=== PATIENT | male | born 1970 | race Caucasian/White ===

== ENCOUNTER 2017-08-13 11:34 | Inpatient (IN) | payer BC ==
[~2017-08-13] VITALS: Ht 170.2 cm; Wt 87.0 kg
[2017-08-13] VITALS (22 sets, daily range): BP systolic 106–1112; BP diastolic 69–109
--- NOTE | ~2017-08-13 | EKG ---
[address] [address] ELECTROCARDIOGRAM REPORT Name: GHULAM HERNANDES Room #: 205- ADM IN M.R.#: [id number] Admission: 08/13/17 Attend Phys: Alcides Cabello MD, Discharge: Date of : 66 Report #: [id number] THIS REPORT FOR: //name// 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
--- NOTE | ~2017-08-13 | EKG ---
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
--- NOTE | ~2017-08-13 | H ---
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 Sudden onset of severe unremitting chest pain. Laid down on the road and brought in to the emergency room from a good [facility]. He was awake, but in 10+/10 chest pain. Initial EKG, an acute ST segment elevated inferior wall myocardial infarction. The patient was given fentanyl, morphine, Lipitor and aspirin in the Emergency Room. Still with unremitting discomfort. He has hemodynamically remained stable. He has not had a syncopal event. There was one episode a couple of weeks ago where he only ran half his way he normally runs, but otherwise has not had symptoms previously. He has had no history of coronary artery disease. There is no family history of coronary artery disease. He was a heavy smoker, 2 packs a day for 20 years up until 10 years ago and now cigars only. He also has lost 40 pounds over the last few years by my understanding, and is an avid runner. His initial lab, potassium is 3.9, creatinine 1.1, troponin was pending. MEDICATIONS: None. He previously took a statin and weight loss and numbers improved, and takes Aleve before he runs. ALLERGIES: He has no known drug allergies. SOCIAL HISTORY: He is , 3 children. Minimal alcohol. No current tobacco. Occasional cigar on the weekend. 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 FAMILY HISTORY: Negative for premature coronary artery disease. REVIEW OF SYSTEMS: Essentially negative except for perhaps some slight increased fatigue and as stated above. PHYSICAL EXAMINATION: GENERAL: He is alert, but in significant pain. VITAL SIGNS: Pulse was 70s, blood pressure was 126/86. HEENT: Eyes reveal xanthelasmas. Pharynx is clear. NECK: Shows preserved upstrokes without jugular venous distention or bruits. LUNGS: Clear. CARDIOVASCULAR: Regular rate and rhythm, S1, S2. ABDOMEN: Soft. No HSM or abdominal bruit. [facility] [address] [place] [address] HISTORY AND PHYSICAL Name: GHULAM HERNANDES Room #: 205-P [facility] IN [facility]#: [id number] Admission: 08/13/17 Attend Phys: Alcides Cabello MD, Discharge: 08/15/17 Date of : 66 Report #: [id number] EXTREMITIES: Reveal no edema. His pulses were intact. NEUROLOGIC: Nonfocal. SKIN: Warm and dry without xanthoma or ulcer. MUSCULOSKELETAL: No gross joint deformity. ASSESSMENT: 1. Acute inferior wall myocardial infarction. 2. Remote history of tobacco. 3. Suspected hypercholesterolemia with history of ____. RECOMMENDATIONS AND PLAN: As stated above, have given Lipitor, aspirin, heparin bolus, and fentanyl, still significant discomfort with ST elevation. We will proceed emergently to the catheterization lab to delineate the anatomy. I have discussed this with the patient and his is present. <ELECTRONICALLY SIGNED> By: Alcides Cabello MD, FACC 08/15/17 1646 1250 1318 Alcides Cabello MD, FACC /nt
--- NOTE | ~2017-08-13 | EKG ---
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 : 1970 Requested By: Eladia Stapleton Order Number: [id number] MD: Tom Stack Measurements Intervals [place] Rate: 67 P: 45 [place]: 159 QRS: 12 QRSD: 95 T: -29 QT: 406 QTc: 429 Interpretive Statements Sinus rhythm RSR' in V1 or V2, probably normal variant T wave abnormality, consider inferior ischemia No previous ECG available for comparison Electronically Signed On 08-15-2017 8:34:45 CDT by Tom Stack [email or web address] <ELECTRONICALLY SIGNED> By: Tom Stack MD, [facility] [id number] 2 2 Tom Stack MD, [facility] /EPI
--- NOTE | ~2017-08-13 | CATHLAB ---
[facility] [address] [place] [address] INVASIVE PROCEDURE REPORT Name: GHULAM HERNANDES Room #: 205-P ADM IN M.R.#: [id number] Admission: 08/13/17 Attend Phys: Alcides Cabello, Discharge: Date of : 66 Date of Service: 08/14/17 1144 Report #: [id number] THIS REPORT FOR: //name// APPROVED REPORT Patient Details Patient Status: In-Patient Room #: The patient is a 47 year-old male Event Personnel Alcides Cabello Field Court Researcher, Gertrude Conley, Jean Carlos Perry RN RN, Alfredo Barnes RN RN, Jaqueline Dewey Scrub Procedures Performed Art Access - R femoral artery* 31606 Initial Mod Sed Same Phys/QHP Gr5y 625609 Left Heart Cath w/or w/o Coronaries [id number] [facility] CONNIE Revasc AMI Total/Sub Single RCA C9606 AMIREVSING Hemostasis with Manual pressure Procedure Narrative The patient was brought emergently to the Cardiac Catheterization Laboratory and was prepped and draped in a sterile manner. The Right Groin^ was infiltrated with 1% Lidocaine subcutaneous anesthesia. A PINNACLE 6FR Sheath #[id number] sheath was inserted into the RFA^. Coronary angiography was performed using coronary diagnostic catheters. The right coronary system was accessed and visualized with a LAUNCHER 6FR JR 4 #[id number] catheter. The left coronary system was accessed and visualized with a 6FR JL4 #[id number] catheter. The left ventricle was accessed and visualized with a 6FR PIGTAIL STRAIGHT #[id number] catheter. Left ventricular/Aortic Valve gradient assessed via catheter pullback. Left ventriculogram was performed in 30 degree projection. An aortogram of the abdominal aorta was performed. The patient tolerated the procedure well and there were no complications associated with the procedure. There was no hematoma. Intraoperative Conscious Sedation Sedation start time: 12:18 Case end Time: 12:41 Fentanyl 50.0 mcg Versed 1.0 mg Fluoro Time: 4.02 minutes Dose: DAP 6182.90 cGycm2 730 mGy Contrast Type and Amount: Visipaque 150 ml [place] [address] [place] [address] INVASIVE PROCEDURE REPORT Name: CECILIO,GHULAM BOLAÑOS Room #: 205-P [facility] IN ..#: [id number] Admission: 08/13/17 Attend Phys: Alcides Cabello, Discharge: Date of : 66 Date of Service: 08/14/17 1144 Report #: [id number] Hemodynamics The aortic pressure is 177/122 mmHg with a mean of 140 mmHg. The left ventricular pressure is 194/54 mmHg with a mean of mmHg. The left ventricular end diastolic pressure is 92 mmHg. PCI Technique Lesion Anticoagulation was achieved with Heparin. Percutaneous coronary intervention was performed on the proximal right coronary artery. The lesion stenosis prior to intervention was 100% with DRE 0 flow. A LAUNCHER 6FR JR 4 #[id number] Guide Catheter was used to engage the ostium. A Luge Wire .014 x 182CM #[id number] Interventional Guidewire was used to cross the lesion. BALLOON DILATION A Balloon catheter Sprinter OTW 3.0 x 15 #[id number] was inserted and inflated up to 12.00atm for 22seconds. STENT DEPLOYMENT A drug-eluting stent RESOLUTE OTW 4.0 X 12 #[id number] was inserted and inflated up to 14.00atm for 24seconds. Final angiography reveals % stenosis with DRE 3 flow. Conclusion #1 successful emergent PTCA stent of the large dominant right coronary artery proximal total occlusion to 0% with DRE-3 grade flow a 40 by 12 resolute drug-eluting stent postdilated 4.2 mm in size. #2 left main mild irregularity giving rise to LAD and circumflex #3 LAD extends around the apex years mild irregularity at relatively small calibered stops just short of the apex. Moderate size diagonal branch widely patent #4 circumflex OM is nondominant eccentric 3040% proximal lesion relatively large distal OM branch patent #5 normal left ventricular size with inferior wall hypokinesis EF 45% range (stunning) #6 abdominal aortic exam intact with mild irregularity no aneurysm single renal arteries widely patent Recommendations and plan patient markedly improved hemodynamically stable currently post emergent stent placement. Resolution of EKG changes. There is a stepup and stepdown on this stent proximal and distal to the stent in an area of mildly diseased vessel this is a large dominant right coronary artery. The distal PDA JODY are extensive and well preserved. Transfer to CCU in stable but guarded condition. We'll continue Integrilin drip. Dual antiplatelet therapy will be continued at least [facility] [address] [place] [address] INVASIVE PROCEDURE REPORT Name: GHULAM HERNANDES Room #: 205-P ADM IN M.R.#: [id number] Admission: 08/13/17 Attend Phys: Alcides Cabello, Discharge: Date of : 66 Date of Service: 08/14/17 1144 Report #: [id number] 6-12 months. No lifting for 48 hours no line tub Jacuzzi or Solitario for a week. No MRI or dental work for 3 months. Transfer CCU post infarct stent protocol. <ELECTRONICALLY SIGNED> By: Alcides Cabello MD, FACC 08/14/17 1144 1144 114 Alcides Cabello MD, FACC /INF
[2017-08-13 11:52] LABS: ABSOLUTE NEUTROPHILS 5.1 thou/uL (1.4-8.2); BASOPHILS 0.7 % (0.0-2.0); EOSINOPHILS 1.8 % (0.0-3.0); HEMOGLOBIN 15.3 gm/dL (14.0-18.0); MCH 30.1 pg (26.0-34.0); MCHC 33.9 g/dL (28.0-37.0); MCV 88.9 fL (80.0-100.0); MONOCYTES 6.8 % (1.0-8.0); PLATELET COUNT 315 thou/uL (150-400); POLYS 38.7 % (36.0-66.0); RBC 5.06 mil/uL (4.50-6.00); RDW 13.4 % (10.5-14.5); WBC 13.1 thou/uL (4.0-11.0)
[2017-08-13 11:55] LABS: MANUAL DIFF NO
[2017-08-13 12:00] LABS: CALCIUM 9.3 mg/dL (8.5-10.1); CREATININE 1.1 mg/dL (0.7-1.3); POTASSIUM 3.9 mmol/L (3.5-5.1)
[2017-08-13 12:09] LABS: TROPONIN-I 0.07 ng/mL (<0.04-0.07)
[2017-08-14] VITALS (7 sets, daily range): BP systolic 120–123; BP diastolic 78–87
[2017-08-14 04:47] LABS: HEMATOCRIT 40.1 % (42.0-52.0); MCH 29.8 pg (26.0-34.0); MCHC 33.2 g/dL (28.0-37.0); MCV 89.8 fL (80.0-100.0); RBC 4.46 mil/uL (4.50-6.00); RDW 13.8 % (10.5-14.5); WBC 10.1 thou/uL (4.0-11.0)
[2017-08-14 04:59] LABS: HEMOGLOBIN 13.3 gm/dL (14.0-18.0)
[2017-08-14 05:18] LABS: ANION GAP 7 mmol/L (7-16); BUN 14 mg/dL (7-18); CALCIUM 8.5 mg/dL (8.5-10.1); CHLORIDE 108 mmol/L (98-107); CO2 28 mmol/L (21-32); GLUCOSE 103 mg/dL (74-106); POTASSIUM 4.1 mmol/L (3.5-5.1); SODIUM 143 mmol/L (136-145)
[2017-08-14 05:19] LABS: SERUM ASSESSMENT Clear
[2017-08-14 05:20] LABS: TROPONIN-I 33.12 ng/mL (<0.04-0.07)
[2017-08-14 05:32] LABS: CHOLESTEROL 225 mg/dL (<200); HDL CHOLESTEROL 30 mg/dL (>40); LDL CHOLESTEROL 141 mg/dL (<100); TC:HDL 7.5 Ratio (Not establshd); TRIGLYCERIDE 270 mg/dL (<150); VLDL 54 mg/dL (<40)
[2017-08-15 03:52] VITALS: BP 121/76
[2017-08-15 07:24] VITALS: BP 114/77
[2017-08-15] MEDS ORDERED: METOPROLOL SUCC25 M1 PO (07:53)
[2017-08-15] MEDS ORDERED: PROTONIX 20 MG20 M1 PO (07:53)
[2017-08-15] MEDS ORDERED: EFFIENT10 MG PO (07:53)
[2017-08-15] MEDS ORDERED: ATORVASTATIN CA80 MG PO (07:53)
[2017-08-15] MEDS ORDERED: LISINOPRIL5 MG PO (07:53)
[2017-08-15] MEDS ORDERED: ASPIRIN325 PO (07:53)
[2017-08-15 09:26] VITALS: BP 114/77
== END 2017-08-15 11:46 | disposition home or self-care (01) | DRG 247 ==
LOC: ER 11:34 → EROBS 12:25 → 2N 12:25
PROVIDERS: Emergency Medicine; Internal Medicine Cardiovascular Disease
DX: I21.19 ST elevation (STEMI) myocardial infarction involving other coronary artery of inferior wall (principal); I10 Essential (primary) hypertension; E78.00 Pure hypercholesterolemia, unspecified; I25.5 Ischemic cardiomyopathy; F17.210 Nicotine dependence, cigarettes, uncomplicated; Z79.899 Other long term (current) drug therapy
CPT/HCPCS: 10081